=== PATIENT | male | born 1975 | race Two or more races ===

== ENCOUNTER 2025-06-03 20:35 | Emergency (ER) | payer OTHER ==
[~2025-06-03] VITALS: Ht 188 cm; Wt 72.6 kg
[2025-06-03 20:45] VITALS: TEMP 98.4
[2025-06-03] MEDS ORDERED: LORAZEPAM 1 MG TABLET ONE (21:28)
[2025-06-03] MEDS: LORAZEPAM 1 MG TABLET PO ONE (21:31)
[2025-06-03 21:32] LABS: PLATELET COUNT (AUTO) 138 K/uL (150-450); RED BLOOD CELL COUNT(AUTO) 4.12 MIL/uL (4.5-6.0); RED CELL DISTRIBUTION WIDTH 13.5 % (11.5-15.0); WHITE BLOOD COUNT (AUTO) 4.4 K/uL (4.3-11.0)
[2025-06-03] MEDS ORDERED: TDAP [DIPH/PERTUSSIS/TET] 0.5 ML VIAL IM ONE (21:32)
[2025-06-03] MEDS: TDAP [DIPH/PERTUSSIS/TET] 0.5 ML VIAL IM ONE (21:35)
[2025-06-03 21:38] LABS: CALCIUM, SERUM 9.8 mg/dL (8.5-10.1); CREATININE 1.3 mg/dL (0.6-1.3); SODIUM SERUM 139 mmol/L (136-145); UREA NITROGEN, BLOOD 14 mg/dL (7-18)
[2025-06-03 21:44] LABS: ALCOHOL, BLOOD < 3 mg/dL (0-10); ASPARTATE AMINOTRANSFERASE 104 U/L (15-37); TOTAL PROTEIN, SERUM 8.0 g/dL (6.4-8.2)
[2025-06-03 22:28] LABS: AMPHETAMINE, URINE NEGATIVE (NEGATIVE); APPEARANCE,URINE CLEAR (CLEAR); BARBITURATE, URINE NEGATIVE (NEGATIVE); BENZODIAZEPINE, URINE NEGATIVE (NEGATIVE); BLOOD, URINE NEGATIVE Ery/uL (NEGATIVE); COCCAINE, URINE NEGATIVE (NEGATIVE); LEUKOCYTE ESTERASE ,URINE NEGATIVE (NEGATIVE); NITRITE, URINE NEGATIVE (NEGATIVE); OPIATE, URINE NEGATIVE (NEGATIVE); UGLUCOSE TRACE mg/dL (NEGATIVE)
[2025-06-03 22:30] LABS: CANNABINOID, URINE POSITIVE (NEGATIVE)
[2025-06-03 23:05] LABS: ADD URINE CULTURE YES
[2025-06-03 23:07] LABS: COARSE GRANULAR CASTS,URINE Few /LPF (None Seen); SQUAMOUS EPITHELIAL CELL,UR Few /HPF (None Seen)
[2025-06-04 00:08] VITALS: BP 130/94; O2SAT 95
== END 2025-06-04 05:57 | disposition left against medical advice (07) ==
LOC: ER 20:37
DX: S09.8XXA Other specified injuries of head, initial encounter (principal); R45.1 Restlessness and agitation; R00.0 Tachycardia, unspecified; Z59.00 Homelessness unspecified; Z60.2 Problems related to living alone; Z20.822 Contact with and (suspected) exposure to COVID-19; X58.XXXA Exposure to other specified factors, initial encounter; Y93.89 Activity, other specified; Y92.89 Other specified places as the place of occurrence of the external cause; Y99.8 Other external cause status
CPT/HCPCS: 36415; 70450-TC; 80048-TC; 80076-TC; 81001; 85025-TC; 87086-TC; 90715; 98960; G0480